=== PATIENT | female | born 1985 | race Caucasian/White ===

== ENCOUNTER 2017-07-17 17:39 | Emergency (ER) | payer OTHER ==
[~2017-07-17] VITALS: Ht 172.7 cm; Wt 90.7 kg
[~2017-07-17 17:39] MED LIST: ADVIL200 MG PO; AZITHROMYCIN 2250 MG PO; CIPRO250 M1 PO; CIPROFLOXACIN500 M1 PO; IBUPROFEN 800800 MG PO; IRON236 MG; IRON325; NAPHCON-A EYE D15 ML OP; NAPROSYN500 MG PO; NAPROXEN DELAY500 M1 PO; NOHOMEMEDICATIONS; NORCO 5-325 TA1 EACH PO; ONDANSETRON HCL4 M2 PO; PREDNISONE 10 M10 MG PO; PROVENTIL IH; TESSALON200 MG PO; ULTRAM 50MG TAB50 MG PO; VICODIN 5-5001 EACH PO; ZPAK PO
[2017-07-17 18:12] LABS: ABSOLUTE BASOPHILS 0.1 thou/uL (0.0-0.2); ABSOLUTE LYMPHOCYTES 1.9 thou/uL (0.8-5.3); ABSOLUTE MONOCYTES 0.6 thou/uL (0.0-1.2); ABSOLUTE NEUTROPHILS 4.7 thou/uL (1.6-8.1); EOSINOPHILS 0.5 %; HEMATOCRIT 25.1 % (37.0-47.0); HEMOGLOBIN 7.4 gm/dL (12.0-15.0); LYMPHOCYTES 25.8 %; MCH 18.6 pg (26.0-34.0); MCHC 29.3 g/dL (28.0-37.0); MCV 63.6 fL (80.0-100.0); MONOCYTES 8.7 %; MPV 7.2 fl. (7.2-11.1); NUCLEATED RBCS 0 /100WBC; PLATELET COUNT* 374 thou/uL (150-400); RBC 3.95 mil/uL (4.20-5.00); RDW-CV 19.5 % (10.5-14.5); WBC 7.4 thou/uL (4.0-11.0)
[2017-07-17 18:20] LABS: CALCIUM 8.4 mg/dL (8.5-10.1); CREATININE 0.8 mg/dL (0.6-1.3); POTASSIUM 3.7 mmol/L (3.5-5.1)
[2017-07-17 18:24] LABS: ALBUMIN 3.6 g/dL (3.4-5.0); TOTAL BILIRUBIN 0.4 mg/dL (<0.1-1.0); TOTAL PROTEIN 7.4 g/dL (6.4-8.2)
[2017-07-17 18:38] LABS: OVALOCYTES 1+; PLATELET ESTIMATE ADEQUATE
[2017-07-17 18:39] LABS: ANISOCYTOSIS 2+; HYPOCHROMASIA 3+; MICROCYTES 3+
[2017-07-17 18:44] LABS: TEARDROPS Occasional
[2017-07-17 18:52] LABS: URINE BILIRUBIN NEGATIVE (Negative); URINE BLOOD TRACE (Negative); URINE CLARITY CLEAR; URINE COLOR YELLOW; URINE GLUCOSE-RANDOM NEGATIVE (Negative); URINE KETONES NEGATIVE (Negative); URINE LEUKOCYTES-REFLEX TRACE (Negative); URINE NITRITE-REFLEX NEGATIVE (Negative); URINE PROTEIN TRACE (Negative); URINE SPECIFIC GRAVITY 1.025 (1.005-1.030)
[2017-07-17 19:00] LABS: SQUAMOUS >10 Many /LPF (0-3)
[2017-07-17 19:01] LABS: MUCUS 0-3 Light strn/LPF (None Seen); URINE WBC-REFLEX 0-5 Rare /HPF (0-5)
[2017-07-17 19:03] LABS: URINE RBC 0-2 Rare /HPF (0-2)
[2017-07-17 19:04] LABS: CASTS None Seen /LPF (None Seen); CRYSTALS None Seen /LPF (None Seen)
[2017-07-17] MEDS ORDERED: ZOFRAN4 MG PO (19:09)
[2017-07-17 20:12] VITALS: BP 123/42
== END 2017-07-17 20:13 | disposition home or self-care (01) ==
LOC: M.ERS 17:39
PROVIDERS: Nurse Practitioner Family
DX: R11.2 Nausea with vomiting, unspecified (principal); R19.7 Diarrhea, unspecified; D64.9 Anemia, unspecified; J45.909 Unspecified asthma, uncomplicated; Z91.011 Allergy to milk products

== ENCOUNTER 2018-06-11 10:52 | Emergency (ER) | payer OTHER ==
[~2018-06-11] VITALS: Ht 172.7 cm; Wt 113.4 kg
[~2018-06-11 10:52] MED LIST changes: +ZOFRAN4 MG PO
[2018-06-11] MEDS ORDERED: FLEXERIL PO (12:01)
[2018-06-11] MEDS ORDERED: HYDROCODONE-AP1 EAC6 PO (12:01)
[2018-06-11 12:07] VITALS: BP 140/68
== END 2018-06-11 12:07 | disposition home or self-care (01) ==
LOC: M.ERS 10:52
DX: S76.012A Strain of muscle, fascia and tendon of left hip, initial encounter (principal); S76.011A Strain of muscle, fascia and tendon of right hip, initial encounter; J45.909 Unspecified asthma, uncomplicated; Z91.011 Allergy to milk products; Z86.2 Personal history of diseases of the blood and blood-forming organs and certain disorders involving the immune mechanism; X58.XXXA Exposure to other specified factors, initial encounter; Y92.89 Other specified places as the place of occurrence of the external cause; Y93.89 Activity, other specified; Y99.8 Other external cause status

== ENCOUNTER 2018-08-13 09:38 | Emergency (ER) | payer OTHER ==
[~2018-08-13] VITALS: Ht 172.7 cm; Wt 117.9 kg
[~2018-08-13 09:38] MED LIST changes: +FLEXERIL PO; +HYDROCODONE-AP1 EAC6 PO
[2018-08-13] MEDS ORDERED: NORCO 5-325 TA1 EAC1 PO (10:46)
[2018-08-13 11:09] VITALS: BP 116/61
== END 2018-08-13 11:10 | disposition home or self-care (01) ==
LOC: M.ERS 09:38
DX: S80.02XA Contusion of left knee, initial encounter (principal); J45.909 Unspecified asthma, uncomplicated; Z86.2 Personal history of diseases of the blood and blood-forming organs and certain disorders involving the immune mechanism; W18.39XA Other fall on same level, initial encounter; Y93.89 Activity, other specified; Y92.89 Other specified places as the place of occurrence of the external cause; Y99.8 Other external cause status

== ENCOUNTER 2019-05-03 19:58 | Emergency (ER) | payer OTHER ==
[~2019-05-03] VITALS: Ht 172.7 cm; Wt 136.1 kg
[~2019-05-03 19:58] MED LIST changes: +NORCO 5-325 TA1 EAC1 PO
[2019-05-03 20:56] LABS: INFLUENZA A ANTIGEN Positive (Negative); INFLUENZA B ANTIGEN Negative (Negative)
[2019-05-03] MEDS ORDERED: PROMETHAZI6.25 MG/5 PO (21:35)
[2019-05-03] MEDS ORDERED: TESSALON PERLE100 MG PO (21:35)
[2019-05-03] MEDS ORDERED: PROAIR HFA8.5 GM INH (21:35)
[2019-05-03] MEDS ORDERED: TYLENOL WITH CO1 TA1 PO (21:35)
[2019-05-03 21:43] VITALS: BP 155/83
== END 2019-05-03 21:44 | disposition home or self-care (01) ==
LOC: M.ERS 19:58
PROVIDERS: Emergency Medicine
DX: J10.1 Influenza due to other identified influenza virus with other respiratory manifestations (principal); J45.909 Unspecified asthma, uncomplicated; Z86.2 Personal history of diseases of the blood and blood-forming organs and certain disorders involving the immune mechanism; Z91.011 Allergy to milk products